=== PATIENT | male | born 1975 | race African-American/Black ===

== ENCOUNTER 2019-12-02 15:44 | Emergency (ER) | payer OTHER, SELFPAY ==
[2019-12-02 15:48] VITALS: BP 163/92; PULSE 78; RESP 16; TEMP 36.2; O2SAT 99
--- NOTE | 2019-12-02 16:08 | ED.DENTAL ---
HPI - Dental/Oral General Chief complaint: Dental/Oral Stated complaint: oral abcess Time Seen by Provider: 12/02/19 16:08 Source: patient Mode of arrival: ambulatory Limitations: no limitations History of Present Illness HPI Narrative: A 44 y/o male presents to the ED with c/o right-sided dental pain and facial edema for 3 days. Pt called his dentist in regards to these complaints and was told that they would be unable to do anything until the swelling goes down. Pt states that his dentist does plan to pull the tooth. Pt is able to swallow but notes it is difficult to chew due to the pain. Pt has a history of the same symptoms, with the last episode occurring 2 years ago. He denies a cough, CP, ABD pain, and N/V. Onset (ago): day(s) (3) Related Data Allergies Allergy/AdvReac Type Severity Reaction Status Date / Time No Known Allergies Allergy Verified 12/02/19 16:12 Review of Systems Review of Systems: Narrative: CONSTITUTIONAL: Denies fever, chills, or sweats. ENT: Reports: right-sided dental pain and facial edema; Denies rhinorrhea, congestion, sore throat, or otalgia. CARDIOVASCULAR: Denies chest pain, palpitations, or edema. RESPIRATORY: Denies cough or dyspnea. GASTROINTESTINAL: Denies abdominal pain, nausea, vomiting, or diarrhea. All systems reviewed & are unremarkable except as noted in HPI and below PMFSH Social History Social History (Updated 12/02/19 @ 16:17 by Carina Madrid) Smoking status: Never smoker Comments No significant PMHx. No PCP on file. Exam Narrative: Exam Narrative: GENERAL: Awake, alert, conversant HEAD: Normocephalic, atraumatic. ENT: Mild right mandibular facial edema, no erythema, no trismus, no periapical abscess, dental caries in molars 30 and 31. No submandibular edema. No erythema of the neck. No [employer]. NECK: Full range of motion CHEST: No respiratory distress, speaking in full sentences, no tachypnea HEART: Regular rate EXTREMITIES: Normal range of motion. No edema. SKIN: Warm, dry, no rash. NEURO: No focal deficits. Alert and oriented x3. Ambulatory with a narrow base, steady gait, no ataxia. Course Vital Signs Vital signs: Vital Signs Temperature 36.2 C L 12/02/19 15:48 Pulse Rate 78 12/02/19 15:48 Respiratory Rate 16 12/02/19 15:48 Blood Pressure 163/92 H 12/02/19 15:48 Pulse Oximetry 99 12/02/19 15:48 Temperature 36.2 C L 12/02/19 15:48 Pulse Rate 78 12/02/19 15:48 Respiratory Rate 16 12/02/19 15:48 Blood Pressure 163/92 H 12/02/19 15:48 Pulse Oximetry 99 12/02/19 15:48 MDM - Dental/Oral MDM Narrative Medical decision making narrative: Patient's pain is consistent with dental caries. At the time of assessment there are no signs of systemic illness, no focal signs of space-occupying abscess or lesions, no signs of Ced angina or other concerning retropharyngeal infection. The patient is controlling his secretions well without signs of airway compromise. Patient is thought to be reasonable for outpatient follow-up with dental evaluation. Patient given oral antibiotics and medication for analgesia. Differential Diagnosis Differential diagnosis: Likely dental caries, toothache, dental abscess, fracture of tooth and aphthous ulcer Discharge Plan Discharge Clinical Impression: Dental caries, Toothache Patient Disposition: Home, Self-Care Condition: Stable Instructions: Antibiotic Form, Toothache (ED) Additional Instructions: Please contact your dentist for follow up from this visit. If you experience worsening pain, vomiting that does not stop, bleeding complications, chest pain, shortness of breath, inability to tolerate your medications please return for reassessment. Take any prescribed medications as directed and do not miss or skip any doses of antibiotics if you have been prescribed them to take. Stay well-hydrated For fever and pain, you may take Tylenol 500 mg - 1000 mg every 8 hours, and Ibuprofen 400 mg every 6-8
== END 2019-12-02 16:56 | disposition home or self-care (01) ==
LOC: ANHED 16:24
PROVIDERS: Emergency Provider Emergency Medicine
DX: K02.9 Dental caries, unspecified (principal)
CPT/HCPCS: 99283; A9270